=== PATIENT | female | born 1975 | race Caucasian/White ===

== ENCOUNTER 2020-04-06 09:27 | Emergency (ER) | payer MEDICAID ==
[~2020-04-06] VITALS: Ht 157.5 cm; Wt 88.9 kg
[2020-04-06 09:36] VITALS: BP 110/59; Ht 157.5 cm; Wt 88.9 kg
== END 2020-04-06 10:00 | disposition home or self-care (01) ==
LOC: ED 09:27
DX: N75.1 Abscess of Bartholin's gland (principal)

== ENCOUNTER 2020-04-08 11:51 | Emergency (ER) | payer MEDICAID ==
[~2020-04-08] VITALS: Ht 157.5 cm; Wt 88.9 kg
[2020-04-08 12:00] VITALS: Ht 157.5 cm; Wt 88.9 kg
[2020-04-08 12:52] VITALS: BP 150/94
== END 2020-04-08 12:52 | disposition home or self-care (01) ==
LOC: ED 11:51
DX: N90.89 Other specified noninflammatory disorders of vulva and perineum (principal)